=== PATIENT | female | born 1990 | race Caucasian/White ===

== ENCOUNTER → 2018-03-15 | Outpatient (CLI) | payer OTHER ==
[~2018-03-15] MED LIST: ANAPROX DS550 MG PO; BACTRIM DS 8001 TA1 PO; HYDROCODONE BIT1 T11 PO; NAPROSYN500 MG PO; ZITHROMAX Z PA250 MG PO
== END | disposition home or self-care (01) ==
LOC: RAD 11:35
DX: M54.6 Pain in thoracic spine (principal); R20.2 Paresthesia of skin; M79.605 Pain in left leg

== ENCOUNTER → 2020-11-30 | Outpatient (CLI) | payer OTHER | END | disposition home or self-care (01) | LOC: COVID19 15:19 | PROVIDERS: ATTEND Internal Medicine | DX: Z20.822 Contact with and (suspected) exposure to COVID-19 (principal) ==

== ENCOUNTER → 2022-04-20 | Outpatient (CLI) | payer OTHER | END | disposition home or self-care (01) | LOC: US 08:30 | PROVIDERS: ATTEND Internal Medicine | DX: K76.0 Fatty (change of) liver, not elsewhere classified (principal); R93.2 Abnormal findings on diagnostic imaging of liver and biliary tract ==

== ENCOUNTER 2022-10-14 12:59 | Emergency (ER) | payer OTHER ==
[~2022-10-14] VITALS: Ht 162.5 cm; Wt 90.7 kg
[2022-10-14 16:04] LABS: BASO % 0.8 % (0.0-1.0); EOS % 0.8 % (1.0-4.0); HEMATOCRIT 39.4 % (37.0-47.0); LYMPH # 0.9 10*3/uL (1.3-4.4); LYMPH % 16.9 % (27.0-41.0); MEAN CELL VOLUME 87.8 fl (81.0-99.0); MEAN CORPUSCULAR HGB 28.5 pg (27.0-31.0); MEAN CORPUSCULAR HGB CONC 32.5 g/dl (33.0-37.0); MEAN PLATELET VOLUME 9.8 fl (9.6-12.3); MONO # 0.6 10*3/uL (0.1-1.0); MONO % 11.6 % (3.0-9.0); NEUT # 3.5 10*3/uL (2.3-7.9); NEUT % 69.3 % (47.0-73.0); PLATELET COUNT AUTOMATED 281 10*3/uL (130-400); RED BLOOD COUNT 4.49 10*6/uL (4.10-5.10); RED CELL DISTRI WIDTH 13.3 % (0-14.5); WHITE BLOOD COUNT 5.1 10*3/uL (4.8-10.8)
[2022-10-14 16:19] LABS: ALKALINE PHOSPHATASE 61 U/L (46-116); BUN 5 mg/dl (9-23); CHLORIDE 104 mmol/L (98-107); POTASSIUM 3.7 mmol/L (3.4-5.1); SGPT/ALT 78 U/L (10-49); SODIUM 138 mmol/L (136-145); TOTAL PROTEIN 6.7 gm/dL (6.0-8.0)
[2022-10-14] MEDS ORDERED: TAMIFLU 75MG CA75 MG PO (16:41)
== END 2022-10-14 16:54 | disposition home or self-care (01) ==
LOC: ED 12:59
PROVIDERS: Student in an Organized Health Care Education/Training Program
DX: J10.1 Influenza due to other identified influenza virus with other respiratory manifestations (principal)